=== PATIENT | male | born 1965 | race African-American/Black ===

== ENCOUNTER 2018-03-22 21:31 | Inpatient (IN) | payer MEDICARE, MEDICAID ==
[~2018-03-22] VITALS: Ht 180.3 cm; Wt 78.9 kg
[~2018-03-22 21:31] MED LIST: AMLO5TAB4 PO; PRED10TA23 PO; PRED5TAB48 PO
[2018-03-22 22:07] LABS: CHLORIDE 103 mEq/L (98-107)
[2018-03-22 22:08] LABS: HEMATOCRIT. 34.4 % (42.0-52.0); HEMOGLOBIN. 11.5 g/dL (14.0-18.0); MEAN CORPUSCULAR HEMOGLOBIN 31.5 pg (28.0-32.0); MEAN CORPUSCULAR VOLUME 94.4 fL (80.0-94.0); MEAN PLATELET VOLUME 7.2 fl (7.4-10.4); PLATELET 252 x1000/uL (130-400); RED BLOOD CELL COUNT 3.64 mill/uL (4.7-6.1); RED CELL DISTRIBUTION WIDTH 17.7 % (11.6-14.6)
[2018-03-22] MEDS ORDERED: ALBUTEROL (0.083%) 2.5MG/3ML NEB HHN STA (22:13)
[2018-03-22] MEDS ORDERED: METHYLPREDNISOLONE SOD SUCC 125 MG/2 ML VIAL IV STA (22:13)
[2018-03-22] MEDS ORDERED: IPRATROPIUM BROMIDE (0.02%) 0.5MG/2.5ML NEB HHN STA (22:13)
[2018-03-22 22:30] LABS: PLATELET ESTIMATE NORMAL
[2018-03-23] VITALS (9 sets, daily range): BP systolic 103–143; BP diastolic 68–95
[2018-03-23 00:31] LABS: BG BASE EXCESS -4.4 mmol/L (-2.0-2.0); BG BILEVEL POS AIRWAY PRESSURE 15/5; BG CARBOXYHEMOGLOBIN 0.3 % (0.5-1.5); BG FRACTION INSPIRED OXYGEN 40; BG HCO3 ACT 20.3 mmol/L (22.0-26.0); BG METHEMOGLOBIN 0.4 % (0.0-1.5); BG OXYHEMOGLOBIN 98.3 % (94.0-97.0); BG PCO2 36.1 mmHg (35.0-45.0); BG PH 7.368 (7.350-7.450); BG PO2 168.7 mmHg (75.0-100.0); BG SAMPLE SITE RIGHT BRACHIAL; BG TOTAL HEMOGLOBIN 11.6 g/dL (12.0-18.0); BG VENT MODE MASK - BIPAP; BG VENT RATE 16 set
[2018-03-23] MEDS ORDERED: DEXT 5%/0.45% NACL 1000ML 1,000 ML IV SCH (00:41)
[2018-03-23] MEDS ORDERED: IPRATROPIUM/ALBUTEROL 0.5-3(2.5)MG/3ML NEB INH PRN (00:45)
[2018-03-23] MEDS ORDERED: ONDANSETRON HCL 4MG/2ML INJ IV PRN (00:45)
[2018-03-23] MEDS ORDERED: NA PHOS,M-B/NA PHOS,DI-BA ENEMA 118ML PR PRN (00:45)
[2018-03-23] MEDS ORDERED: LORAZEPAM 2MG/ML CPJ IV PRN (00:45)
[2018-03-23] MEDS ORDERED: HYDROCODONE/ACETAMINOPHEN 5/325MG TABLET PO PRN (00:45)
[2018-03-23] MEDS ORDERED: DIPHENHYDRAMINE 50MG/ML VIAL IV PRN (00:45)
[2018-03-23] MEDS ORDERED: DOCUSATE SODIUM 100MG CAPSULE PO PRN (00:45)
[2018-03-23] MEDS ORDERED: CLONIDINE 0.1MG TABLET PO PRN (00:45)
[2018-03-23] MEDS ORDERED: ACETAMINOPHEN 325MG TABLET PO PRN (00:45)
[2018-03-23] MEDS ORDERED: MAGNESIUM/ALUMINUM HYDROXIDE/SIMETHICONE 30ML UDC PO PRN (00:45)
[2018-03-23] MEDS ORDERED: MORPHINE SULFATE 4 MG/ML CPJ (NOT FOR IM USE) IV PRN (00:45)
[2018-03-23] MEDS ORDERED: IOHEXOL-350 100 ML BOTTLE ONE (01:07)
[2018-03-23] MEDS ORDERED: LEVOFLOXACIN 500MG PREMIX 100 ML IV SCH (04:00)
[2018-03-23] MEDS: METHYLPREDNISOLONE SOD SUCC 125 MG/2 ML VIAL IV SCH ×2 (06:42→11:50)
[2018-03-23 06:50] LABS: CREATINE KINASE 149 IU/L (39-308)
[2018-03-23 06:51] LABS: CREATINE KINASE MB FRACTION 1.2 ng/mL (0.5-3.6)
[2018-03-23] MEDS: ASPIRIN 81MG EC TABLET PO SCH (08:07)
[2018-03-23] MEDS: ENOXAPARIN 40MG/0.4ML SYR SUBCUT SCH (08:07)
[2018-03-23] MEDS ORDERED: AMOX125S8 PO (09:11)
[2018-03-23] MEDS: IPRATROPIUM/ALBUTEROL 0.5-3(2.5)MG/3ML NEB HHN SCH ×3 (12:30→20:05)
[2018-03-23] MEDS: GUAIFENESIN 600MG ER TABLET PO SCH ×2 (13:44→20:51)
[2018-03-23] MEDS ORDERED: BENZONATATE 100MG CAPSULE PO PRN (14:15)
[2018-03-23 17:02] LABS: CREATINE KINASE 216 IU/L (39-308)
[2018-03-23 17:03] LABS: CREATINE KINASE MB FRACTION 1.6 ng/mL (0.5-3.6)
[2018-03-23] MEDS: METHYLPREDNISOLONE SOD SUCC 40 MG/ML VIAL IV SCH ×2 (17:45→23:13)
[2018-03-23] MEDS: GUAIFENESIN 200MG/10ML SUGAR FREE UDC PO PRN (17:51)
[2018-03-23] MEDS: BUDESONIDE 0.5MG/2ML NEB HHN SCH (20:05)
[2018-03-23] MEDS ORDERED: GUAIFENESIN 600MG ER TABLET PO SCH (21:00)
[2018-03-24] VITALS (11 sets, daily range): BP systolic 108–132; BP diastolic 67–80
[2018-03-24] MEDS: IPRATROPIUM/ALBUTEROL 0.5-3(2.5)MG/3ML NEB HHN SCH ×6 (00:10→20:42)
[2018-03-24] MEDS: LEVOFLOXACIN 500MG PREMIX 100 ML IV SCH (05:33)
[2018-03-24] MEDS: METHYLPREDNISOLONE SOD SUCC 40 MG/ML VIAL IV SCH ×2 (05:33→13:02)
[2018-03-24 06:34] LABS: HEMOGLOBIN. 11.3 g/dL (14.0-18.0); MEAN CORPUSCULAR HEMOGLOBIN 31.2 pg (28.0-32.0); MEAN CORPUSCULAR VOLUME 94.3 fL (80.0-94.0); MEAN PLATELET VOLUME 7.8 fl (7.4-10.4); PLATELET 257 x1000/uL (130-400); RED CELL DISTRIBUTION WIDTH 18.3 % (11.6-14.6)
[2018-03-24 06:58] LABS: CHLORIDE 103 mEq/L (98-107)
[2018-03-24] MEDS: BUDESONIDE 0.5MG/2ML NEB HHN SCH ×2 (07:26→20:43)
[2018-03-24 08:56] LABS: PLATELET ESTIMATE NORMAL
[2018-03-24] MEDS: ENOXAPARIN 40MG/0.4ML SYR SUBCUT SCH (09:41)
[2018-03-24] MEDS: ASPIRIN 81MG EC TABLET PO SCH (09:42)
[2018-03-24] MEDS: GUAIFENESIN 600MG ER TABLET PO SCH ×2 (09:42→20:01)
[2018-03-24] MEDS ORDERED: TERBUTALINE SULFATE 1MG/ML VIAL SUBCUT NR (18:55)
[2018-03-24] MEDS ORDERED: POTASSIUM CHLORIDE 20MEQ TABLET SR PO NR (19:45)
[2018-03-24 22:42] LABS: BG BASE EXCESS 1.8 mmol/L (-2.0-2.0); BG BILEVEL POS AIRWAY PRESSURE 15/5; BG CARBOXYHEMOGLOBIN 0.1 % (0.5-1.5); BG DEOXYHEMOGLOBIN 2.9 % (0.0-5.0); BG FRACTION INSPIRED OXYGEN 40; BG HCO3 ACT 27.2 mmol/L (22.0-26.0); BG METHEMOGLOBIN 0.1 % (0.0-1.5); BG OXYGEN SATURATION 97.1 % (92.0-98.5); BG OXYHEMOGLOBIN 96.9 % (94.0-97.0); BG PO2 96.5 mmHg (75.0-100.0); BG SAMPLE SITE RIGHT RADIAL; BG TOTAL HEMOGLOBIN 11.3 g/dL (12.0-18.0); BG VENT MODE MASK - BIPAP; BG VENT RATE 18 set
[2018-03-25] VITALS (9 sets, daily range): BP systolic 107–130; BP diastolic 59–95
[2018-03-25] MEDS: IPRATROPIUM/ALBUTEROL 0.5-3(2.5)MG/3ML NEB HHN SCH ×4 (00:35→12:04)
[2018-03-25] MEDS: METHYLPREDNISOLONE SOD SUCC 40 MG/ML VIAL IV SCH ×2 (01:42→09:20)
[2018-03-25] MEDS: LEVOFLOXACIN 500MG PREMIX 100 ML IV SCH (05:17)
[2018-03-25] MEDS: BUDESONIDE 0.5MG/2ML NEB HHN SCH (08:34)
[2018-03-25] MEDS: GUAIFENESIN 600MG ER TABLET PO SCH (08:36)
[2018-03-25] MEDS: ASPIRIN 81MG EC TABLET PO SCH (08:36)
[2018-03-25] MEDS: ENOXAPARIN 40MG/0.4ML SYR SUBCUT SCH (08:37)
[2018-03-25] MEDS: GUAIFENESIN 200MG/10ML SUGAR FREE UDC PO PRN ×2 (09:44→14:10)
== END 2018-03-25 14:30 | disposition home or self-care (01) | DRG 189 ==
LOC: ER 22:13 → 5EST 03-23 00:17 → EDBEDREQ 03-23 00:20 → EDBEDREQSVC 03-23 00:20 → EDBEDREQTM 03-23 00:20 → ENRESERV 03-23 02:02
PROVIDERS: ADMIT Internal Medicine; ATTEND Internal Medicine
PROC: 5A09357 Assistance with Respiratory Ventilation, Less than 24 Consecutive Hours, Continuous Positive Airway Pressure (ICD-10-PCS; principal; 2018-03-22)
PROC: 5A09357 Assistance with Respiratory Ventilation, Less than 24 Consecutive Hours, Continuous Positive Airway Pressure (ICD-10-PCS; 2018-03-23)
PROC: 5A09457 Assistance with Respiratory Ventilation, 24-96 Consecutive Hours, Continuous Positive Airway Pressure (ICD-10-PCS; 2018-03-24)
DX: J96.00 Acute respiratory failure, unspecified whether with hypoxia or hypercapnia (principal); R65.10 Systemic inflammatory response syndrome (SIRS) of non-infectious origin without acute organ dysfunction; E46 Unspecified protein-calorie malnutrition; I11.0 Hypertensive heart disease with heart failure; J44.9 Chronic obstructive pulmonary disease, unspecified; I50.9 Heart failure, unspecified; D64.9 Anemia, unspecified; D86.9 Sarcoidosis, unspecified; I25.10 Atherosclerotic heart disease of native coronary artery without angina pectoris; Z68.24 Body mass index [BMI] 24.0-24.9, adult; Z79.899 Other long term (current) drug therapy
CPT/HCPCS: 36415; 36600; 71045; 71275; 80053; 82375; 82550; 82553; 82805; 83880; 84484; 85025; 93005; 94640; 94644; 94660; 96374; 97162; 99291; J1650; J1956; J2920; J2930; J3105; J7050; J7611; J7620; J7626; Q9967

== ENCOUNTER 2022-10-31 22:15 | Emergency (ER) | payer BC, MEDICAID ==
[~2022-10-31] VITALS: Ht 172.7 cm; Wt 82.0 kg
[~2022-10-31 22:15] MED LIST changes: +AMOX125S12 PO
[2022-10-31] MEDS ORDERED: METHYLPREDNISOLONE SOD SUCC 125 MG/2 ML VIAL IV STA (22:31)
[2022-10-31] MEDS ORDERED: ALBUTEROL (0.083%) 2.5MG/3ML NEB HHN STA (22:31)
[2022-10-31 23:22] LABS: BASOPHILS % 0.4 % (0.0-2.0); HEMATOCRIT. 36.2 % (42.0-52.0); LYMPHOCYTES % 31.9 % (20.0-50.0); MEAN CORPUSCULAR VOLUME 90.8 fL (80.0-94.0); MEAN PLATELET VOLUME 7.8 fl (7.4-10.4); MONOCYTES % 9.7 % (2.0-8.0); PLATELET 255 x1000/uL (130-400); RED BLOOD CELL COUNT 3.98 mill/uL (4.7-6.1); RED CELL DISTRIBUTION WIDTH 15.5 % (11.6-14.6)
[2022-10-31 23:42] LABS: CHLORIDE 101 mEq/L (98-107)
[2022-11-01] MEDS ORDERED: ALBU6.7H3 INH (00:09)
[2022-11-01] MEDS ORDERED: P50 MT (00:09)
[2022-11-01 00:29] VITALS: BP 128/84
== END 2022-11-01 00:34 | disposition home or self-care (01) ==
LOC: ER 22:15
DX: D86.9 Sarcoidosis, unspecified (principal); T51.0X1A Toxic effect of ethanol, accidental (unintentional), initial encounter; Y92.89 Other specified places as the place of occurrence of the external cause; J44.9 Chronic obstructive pulmonary disease, unspecified; I10 Essential (primary) hypertension; Z20.822 Contact with and (suspected) exposure to COVID-19
CPT/HCPCS: 36415; 71045; 80053; 80320; 83880; 84484; 85025; 87426; 96374; 99284; C9803; J2930; G0480

== ENCOUNTER 2022-11-04 05:22 | Emergency (ER) | payer BC, MEDICAID ==
[~2022-11-04] VITALS: Ht 182.9 cm; Wt 90.0 kg
[~2022-11-04 05:22] MED LIST changes: +ALBU6.7H3 INH; +P50 MT
[2022-11-04 05:52] LABS: CHLORIDE 106 mEq/L (98-107)
[2022-11-04 05:57] LABS: BASOPHILS % 0.3 % (0.0-2.0); EOSINOPHILS % 1.5 % (0.0-5.0); HEMATOCRIT. 35.4 % (42.0-52.0); HEMOGLOBIN. 11.9 g/dL (14.0-18.0); LYMPHOCYTES % 27.5 % (20.0-50.0); MEAN CORPUSCULAR HEMOGLOBIN 30.7 pg (28.0-32.0); MEAN CORPUSCULAR VOLUME 91.3 fL (80.0-94.0); MEAN PLATELET VOLUME 7.8 fl (7.4-10.4); MONOCYTES % 7.5 % (2.0-8.0); NEUTROPHILS % 63.2 % (40.0-76.0); PLATELET 242 x1000/uL (130-400); RED BLOOD CELL COUNT 3.87 mill/uL (4.7-6.1); RED CELL DISTRIBUTION WIDTH 16.2 % (11.6-14.6)
[2022-11-04 06:58] LABS: BG BASE EXCESS 4.8 mmol/L (-2.0-2.0); BG CARBOXYHEMOGLOBIN 0.3 % (0.5-1.5); BG DEOXYHEMOGLOBIN 0.3 % (0.0-5.0); BG FRACTION INSPIRED OXYGEN 100; BG HCO3 ACT 31.2 mmol/L (22.0-26.0); BG METHEMOGLOBIN 0.3 % (0.0-1.5); BG OXYGEN SATURATION 99.7 % (92.0-98.5); BG OXYHEMOGLOBIN 99.1 % (94.0-97.0); BG PH 7.372 (7.350-7.450); BG PO2 550.3 mmHg (75.0-100.0); BG SAMPLE SITE RIGHT RADIAL; BG TOTAL HEMOGLOBIN 11.9 g/dL (12.0-18.0); BG VENT MODE MASK - BIPAP
[2022-11-04] MEDS ORDERED: METHYLPREDNISOLONE SOD SUCC 125 MG/2 ML VIAL IV STA (08:36)
[2022-11-04] MEDS ORDERED: ALBUTEROL (0.083%) 2.5MG/3ML NEB HHN STA (08:36)
[2022-11-04] MEDS ORDERED: IPRATROPIUM BROMIDE (0.02%) 0.5MG/2.5ML NEB HHN STA (08:36)
[2022-11-04 10:00] VITALS: BP 118/81
[2022-11-04] MEDS ORDERED: ZOLPIDEM TARTRATE 5MG TABLET PO PRN (12:15)
[2022-11-04] MEDS ORDERED: CLONIDINE 0.1MG TABLET PO PRN (12:15)
[2022-11-04] MEDS ORDERED: MAGNESIUM/ALUMINUM HYDROXIDE/SIMETHICONE 30ML UDC PO PRN (12:15)
[2022-11-04] MEDS ORDERED: GUAIFENESIN 200MG/10ML SUGAR FREE UDC PO PRN (12:15)
[2022-11-04] MEDS ORDERED: IPRATROPIUM/ALBUTEROL 0.5-3(2.5)MG/3ML NEB HHN SCH (12:15)
[2022-11-04] MEDS ORDERED: IPRATROPIUM/ALBUTEROL 0.5-3(2.5)MG/3ML NEB NEB PRN (12:15)
[2022-11-04] MEDS ORDERED: DOCUSATE SODIUM 100MG CAPSULE PO PRN (12:15)
[2022-11-04] MEDS ORDERED: ACETAMINOPHEN 325MG TABLET PO PRN ×2 (12:15)
[2022-11-04] MEDS ORDERED: ONDANSETRON HCL 4MG/2ML INJ IV PRN (12:15)
[2022-11-04] MEDS ORDERED: KETOROLAC 15MG/ML VIAL IV PRN (12:15)
[2022-11-04] MEDS ORDERED: LEVOFLOXACIN 500MG PREMIX 100 ML IV SCH (12:15)
[2022-11-04] MEDS ORDERED: NITROGLYCERIN 0.4MG TABLET SL SL PRN (12:15)
[2022-11-04] MEDS ORDERED: ENOXAPARIN 40MG/0.4ML SYR SUBCUT SCH (12:15)
[2022-11-04] MEDS ORDERED: METHYLPREDNISOLONE SOD SUCC 125 MG/2 ML VIAL IV SCH (14:00)
[2022-11-04] MEDS ORDERED: ASCORBIC ACID 500 MG TABLET PO SCH (21:00)
[2022-11-04] MEDS ORDERED: GUAIFENESIN 600MG ER TABLET PO SCH (21:00)
[2022-11-04] MEDS ORDERED: FAMOTIDINE 20MG TABLET PO SCH (21:00)
[2022-11-05] MEDS ORDERED: ASPIRIN 325MG EC TABLET PO SCH (09:00)
[2022-11-05] MEDS ORDERED: ZINC SULFATE 220 MG ( 50 ) CAPSULE PO SCH (09:00)
== END 2022-11-04 10:58 | disposition left against medical advice (07) ==
LOC: ER 05:22 → EDBEDREQ 09:17 → ER 10:58 → SUPCPDRO 12:00 → CANBEDREQ 11-06 17:57
DX: E87.70 Fluid overload, unspecified (principal); Z79.899 Other long term (current) drug therapy
CPT/HCPCS: 36415; 36600; 71045; 80053; 82375; 82805; 83880; 84484; 85025; 93005; 94640; 94660; 96374; 99291; J2930

== ENCOUNTER 2025-05-21 13:16 | Emergency (ER) | payer BC, MEDICAID ==
[~2025-05-21] VITALS: Ht 180.3 cm; Wt 79.0 kg
[~2025-05-21 13:16] MED LIST changes: -AMLO5TAB4 PO; +AMLO5TAB6 PO
[2025-05-21 13:18] VITALS: O2SAT 97
[2025-05-21] MEDS ORDERED: P50 MT (14:53)
[2025-05-21] MEDS ORDERED: OXYC-100 MT (14:53)
[2025-05-21] MEDS: PREDNISONE 20MG TABLET PO ONE (15:01)
[2025-05-21] MEDS: OXYCODONE HCL/ACETAMINOPHEN 5/325MG TABLET PO ONE (15:01)
[2025-05-21 15:20] VITALS: BP 96/60; PULSE 95; RESP 18; TEMP 36.8; O2SAT 97
== END 2025-05-21 15:36 | disposition home or self-care (01) ==
LOC: ER 13:16
DX: M10.9 Gout, unspecified (principal); Z79.52 Long term (current) use of systemic steroids
CPT/HCPCS: 99283; 73610; J7512

== ENCOUNTER 2025-06-12 12:16 | Emergency (ER) | payer BC, MEDICAID ==
[~2025-06-12 12:16] MED LIST changes: +OXYC-100 MT
[2025-06-12 13:00] LABS: BASOPHILS % 0.7 % (0.0-2.0); EOSINOPHILS % 8.2 % (0.0-5.0); HEMATOCRIT. 31.8 % (42.0-52.0); HEMOGLOBIN. 10.6 g/dL (14.0-18.0); LYMPHOCYTES % 30.3 % (20.0-50.0); MEAN PLATELET VOLUME 6.5 fl (7.4-10.4); MONOCYTES % 14.0 % (2.0-8.0); NEUTROPHILS % 46.8 % (40.0-76.0); PLATELET 393 x1000/uL (130-400); RED BLOOD CELL COUNT 3.48 mill/uL (4.7-6.1); RED CELL DISTRIBUTION WIDTH 16.0 % (11.6-14.6)
[2025-06-12] MEDS: PREDNISONE 20MG TABLET PO ONE (13:05)
[2025-06-12] MEDS: OXYCODONE HCL/ACETAMINOPHEN 5/325MG TABLET PO ONE (13:05)
[2025-06-12] MEDS: IBUPROFEN 600MG TABLET PO ONE (13:05)
[2025-06-12 13:09] VITALS: PULSE 85; RESP 16; O2SAT 97
[2025-06-12] MEDS: IPRATROPIUM/ALBUTEROL 0.5-3(2.5)MG/3ML NEB HHN ONE (13:09)
[2025-06-12] MEDS: MAGNESIUM 2 G PREMIX 50 ML IV ONE (13:12)
[2025-06-12 13:33] LABS: CREATININE 1.1 mg/dL (0.6-1.3); TROPONIN I HIGH SENSITIVITY 11 ng/L (3.0-53); UREA NITROGEN BLOOD 7 mg/dL (9-23)
[2025-06-12 15:32] VITALS: BP 119/85; PULSE 89; RESP 18; TEMP 36.7; O2SAT 98
== END 2025-06-12 15:33 | disposition home or self-care (01) ==
LOC: ER 12:16 → EDBEDREQSVC 14:59 → EDBEDREQTM 14:59 → EDBEDREQ 14:59 → CANBEDREQ 15:12 → ER 15:33
DX: M10.072 Idiopathic gout, left ankle and foot (principal); D86.9 Sarcoidosis, unspecified; Z79.52 Long term (current) use of systemic steroids; Z79.899 Other long term (current) drug therapy
CPT/HCPCS: 99285; 96365; 71045; 96366; 80048; 83735; 85025; 84484; 36415; 94640; 93005; J7512; J3475